=== PATIENT | female | born 1980 | race Two or more races ===

== ENCOUNTER 2024-10-22 05:04 | Emergency (ER) | payer MEDICAID, SELFPAY ==
[2024-10-22 05:06] VITALS: BP 106/72; PULSE 68; PULSE 76; RESP 17; RESP 18; TEMP 36.6; O2SAT 95; O2SAT 97
--- NOTE | 2024-10-22 05:06 | EKG_ITS ---
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
[2024-10-22 05:13] VITALS: BMI 44.6
--- NOTE | 2024-10-22 05:24 | EDNOTE_ITS ---
ED Seizures RME/HPI General Chief Complaint: Seizure Stated Complaint: SEIZURE Time Seen by Provider: 10/22/24 05:17 Arrival date/time: 10/22/24 05:04 RME / HPI RME / HPI Narrative: This section includes all my notes and documentations, including HPI, PE, and ED course. Ty Young MD HPI: 44-year-old female here to be evaluated with seizure at home just prior to arrival. Has history of seizures. Takes Keppra 1000 mg BID. Carriage Dogger noted seizure while in bed. Lasted for 20 minutes. Unresponsive during the whole time. Eyes rolled back. Urinary incontinence. No injury. Unable to obtain history from the patient at this point because she is postictal. ROS: Unable to obtain from the patient due to current in no condition. Physical Exam: General: In postictal state. Eyes: Conjunctivae and lids clear. EOMI. PERRL. ENT: No nasal congestion. Neck: Supple. Heart: RRR. Lungs: No respiratory distress. Good air movement. No rhonchi, wheezing, rales. Skin: Warm and dry. Neuro: Cranial Nerves II-XII grossly intact. No obvious peripheral motor deficits. I reviewed EMS notes. I ordered diagnostic tests and Vimpat 200 mg IV. At 0600, the care of the patient was transferred to Dr. Leslie. Ty Young MD Related Data Home Medications ?Medication ?Instructions ?Recorded ?Confirmed aspirin 81 mg capsule 81 mg PO QDAY 04/15/23 04/16/23 atorvastatin 80 mg tablet 80 mg PO QDAY 04/15/23 04/16/23 citalopram 20 mg tablet 20 mg PO QDAY 04/15/23 04/16/23 famotidine 20 mg tablet 20 mg PO HS 04/15/23 04/16/23 hydroxyzine HCl 25 mg tablet 25 mg PO BID PRN Anxiety 04/15/23 04/16/23 levetiracetam 1,000 mg tablet 1,000 mg PO BID 04/15/23 04/16/23 oxcarbazepine 300 mg 300 mg PO QDAY 04/15/23 04/16/23 tablet,extended release 24 hr (Oxtellar XR) Allergies Allergy/AdvReac Type Severity Reaction Status Date / Time Latex, Natural Rubber AdvReac Intermediate Rash Verified 10/22/24 05:22 Course Quality Measures none Orders Category Date Time Status Bedside COVID-19 Antigen Test NOW Care 10/22/24 05:25 Active Bedside Influenza A&B Antigen Test NOW Care 10/22/24 05:25 Active EKG (ED ONLY) *Do not use* NOW Care 10/22/24 05:06 Completed EKG (ED ONLY) *Do not use* NOW Care 10/22/24 05:26 Active Saline [Insert IV] NOW Care 10/22/24 05:25 Active Straight [In and Out Catheter] X1 Care 10/22/24 05:[address] head/brain wo con Stat Exams 10/22/24 05:26 Taken EKG (ED Only) Stat Exams 10/22/24 05:06 Draft EKG (ED Only) Stat Exams 10/22/24 05:26 Ordered XR chest 1V portable Stat Exams 10/22/24 05:26 Ordered Alcohol, Blood Medical Stat Lab 10/22/24 05:27 Ordered CBC Stat Lab 10/22/24 05:28 Ordered CMP [Comprehensive Metabolic Panel] Stat Lab 10/22/24 05:27 Ordered Drug Screen,Urine Stat Lab 10/22/24 05:28 Ordered HCG Qualitative,Urine Stat Lab 10/22/24 05:28 Ordered HCG,Qualitative Serum Stat Lab 10/22/24 05:27 Ordered Magnesium Stat Lab 10/22/24 05:27 Ordered TSH [Thyroid Stimulating Hormone] Stat Lab 10/22/24 05:27 Ordered Troponin I Stat Lab 10/22/24 05:27 Ordered UA [Urinalysis] Stat Lab 10/22/24 05:28 Ordered Lacosamide Ivp [Vimpat IVP] 200 mg Med 10/22/24 05:26 Discontinued Sodium Chloride 0.9% [Ns] 100 ml IV X1 Vital Signs Vital signs: Vital Signs Temperature 97.8 F 10/22/24 05:06 Pulse Rate 76 10/22/24 05:06 Respiratory Rate 17 10/22/24 05:06 Blood Pressure 106/72 10/22/24 05:06 Pulse Oximetry (%) 97 10/22/24 05:06 Oxygen Delivery Method Room Air 10/22/24 05:06 Seizure Patient data External records reviewed:: [facility] previous records Clinical information provided by:: 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 Ty Young MD) Lab and/or radiology exams considered but not ordered:: None Interpretation Summary: Diagnostic tests pending Medications / Prescriptions Medications or Prescriptions considered but not ordered:: None Medication administrations:: Medication Administration History Discontinued Medications Lacosamide 200 mg/ Sodium (Chloride) 120 mls @ 240 mls/hr IV X1 ONE Stop: 10/22/24 05:27 Vimpat Consultations Consultation(s) initiated? (list below): No Diagnosis Seizure Differential Diagnosis: intractable seizure disorder, focal seizure, generalized seizure, epileptic seizure and status epilepticus Most likely diagnosis given after review of the tests above:: Diagnostic tests pending Admission Indicated Admission indicated?: not indicated Explain why admission is indicated or not indicated:: Diagnostic tests pending Admission Request Was there a request for admission?: No Disposition Plan Disposition Plan: other (specify) (Diagnostic tests pending) Discharge Plan Prescriptions/Referrals Prescriptions/Med Rec: No Action atorvastatin 80 mg Tablet 80 mg PO QDAY citalopram 20 mg Tablet 20 mg PO QDAY famotidine 20 mg Tablet 20 mg PO HS hydroxyzine HCl 25 mg Tablet 25 mg PO BID PRN (Reason: Anxiety) levetiracetam 1,000 mg Tablet 1,000 mg PO BID Oxtellar XR 300 mg Tablet Extended Release 24 Hr 300 mg PO QDAY Rx Instructions: must be taken on empty stomach; no food at least 2 hrs before or 1 hr after dose aspirin 81 mg Capsule 81 mg PO QDAY Problem List Clinical Impression: Status epilepticus Patient/Caregiver Discharge Instructions Print Language: Monegasque
--- NOTE | 2024-10-22 05:25 | PC.NURSE ---
Pt BIB EMS with chief c/o of full tonic clonic seizure that lasted about 3 min according to the caregiver who is at bedside. Pt also reports that she did take her keppra at 2200hr last night. Pt denied any injures On assessment the Pt has has not injures noted, is able to MAEW with no discomfort. GCS of 15, A&O4. Pt and caregiver given update on plan of care, Call light within reach
--- NOTE | 2024-10-22 05:26 | XR_ITS ---
Examination: AP chest single view Technique one AP portable upright chest single view Exam date and time: October 22, 2024 0554 hrs. Comparison October 24, 2023 Indications: Onset shortness of breath today. Findings: Normal heart size No pneumonia or pulmonary edema The osseous structures are intact Impression: No active disease
--- NOTE | 2024-10-22 05:26 | XR_ITS ---
Examination: CT brain head without contrast. 2-D sagittal coronal reconstructions Date and time of exam:October 22, 2024 0542 hrs. Indications: Onset seizure this morning, history seizures with tremors CTDI: vol (mGy):57.5 DLP: (mGycm):1160 Technique: Multiple CT axial sections of the brain have been obtained, 5 mm slice thickness. Contrast has not been administered. 2-D sagittal, coronal reconstructions have been obtained Low dose protocols were performed. One or more of the following dose reduction techniques were used; automated exposure control, adjustment of the mA and/or KV according to patient size, use of iterative reconstruction technique. Findings: No significant ventricular enlargement. Again noted tiny cerebral calcifications, which can be seen with cysticercosis Intra-axial or extra-axial hemorrhage density is not seen. No mass effect or midline shift Basal cisterns are not remarkable. Fourth ventricle is midline. Cranial vault intact. 10 mm calcification coronal image 38 contiguous with the left cerebellar tentorium Impression: Negative for acute hemorrhage, mass effect or midline shift Suspicious for 10 mm meningioma contiguous with the left cerebellar tentorium Recommend brain MRI follow-up pre and postcontrast
[2024-10-22] MEDS: LACOSAMIDE IVP 200 MG in SODIUM CHLORIDE 0.9% 100 ML 240 MG IV (06:19)
[2024-10-22 06:28] LABS: Basophils % (Auto) 0 % (0-2.5); Eosinophils # (Auto) 0.1 Thou/mm3 (0.0-0.5); Eosinophils % (Auto) 1 % (0-10); Hemoglobin 11.5 g/dL (12.0-16.0); Immature Granulocytes % (Auto) 1 % (0-0); Immature Granulocytes Auto 0.05 Thou/mm3 (0.00-0.00); Lymphocytes # (Auto) 3.2 Thou/mm3 (1.0-4.8); Lymphocytes % (Auto) 29 % (10-50); Mean Corpuscular HGB Conc 31.9 g/dl (31.0-37.0); Mean Corpuscular Hemoglobin 24.8 pg (25.0-35.0); Mean Corpuscular Volume 78 fL (80-100); Monocytes # (Auto) 0.9 Thou/mm3 (0.0-0.8); Monocytes % (Auto) 8 % (0-12); Neutrophils # (Auto) 6.9 Thou/mm3 (1.8-7.7); Neutrophils % (Auto) 62 % (37-80); Nucleated Red Blood Cell % 0 /100 WBC (0); Platelet Count 415 Thou/mm3 (140-440); RDW Standard Deviation 44.6 fL (36.4-46.3); Red Blood Count 4.64 Miln/mm3 (4.00-5.20)
[2024-10-22 06:42] LABS: HCG,Qualitative Serum Negative
[2024-10-22 06:56] LABS: Alanine Aminotransferase 54 U/L (10-49); Albumin, Serum 4.1 gm/dL (3.5-5.0); Albumin/Globulin Ratio 1.5 (1.2-2.2); Alcohol, Blood Medical < 3.0 mg/dL (0-10.0); Alkaline Phosphatase 317 U/L (46-116); Anion Gap 7 (7-16); Aspartate Amino Transferase 32 U/L (0-34); BUN/Creatinine Ratio 20 Ratio (12-20); Bilirubin,Total 0.2 mg/dL (0.3-1.2); Blood Urea Nitrogen 14 mg/dL (9-23); Calcium 8.8 mg/dL (8.3-10.6); Calcium (Corrected) 8.8 mg/dL (8.5-10.1); Carbon Dioxide 25.6 mMol/L (20.0-31.0); Chloride 105 mMol/L (98-107); Creatinine (Component) 0.7 mg/dL (0.6-1.3); Estimated Creatinine Clearance 128.2 mL/min (>60); Globulin 2.8 gm/dL (2.3-3.5); Glucose 105 mg/dL (74-106); Magnesium 1.9 mg/dL (1.6-2.6); Osmolality,Calculated 276 (275-295); Potassium 3.5 mMol/L (3.4-5.1); Sodium 138 mMol/L (136-145); Thyroid Stimulating Hormone 1.45 uIU/mL (0.55-4.78); Total Protein 6.9 gm/dL (5.7-8.2); eGFR > 60 See Note
[2024-10-22 06:58] LABS: Troponin I < 0.002 ng/mL (0.0-0.045)
--- NOTE | 2024-10-22 07:00 | PRELIM_ITS ---
CT scan of the head without intravenous contrast (axial sections with sagittal and coronal reformats) October 22, 2024 at 0542 hoursClinical History: Seizure.Comparison: No prior study is available for comparison. Findings:There is no evidence of intracranial hemorrhage, mass effect or midline shift. There are scattered calcifications in bilateral periventricular region and left occipital lobe. Dilat e temporal horns of both lateral ventricles and 4th ventricle. There is mild volume loss. The calvari um is unremarkable. The mastoid air cells and the visualized paranasal sinuses are clear.Impression:N o evidence of intracranial hemorrhage, mass effect or midline shift. Dilated temporal horns of both l ateral ventricles. Recommend further evaluation with MRI, as clinically indicated. Other findings as described above. Report Electronically Signed By: Mireille King 10/22/2024 6:59:53 AM [EST]
[2024-10-22 08:18] VITALS: BP 136/75; PULSE 89; RESP 19; TEMP 36.9; O2SAT 97
--- NOTE | 2024-10-22 08:39 | PD.EDADDENDU ---
Emergency Room Addendum Addendum Narrative: Patient's care was transitioned from Dr. Young. Awaits CT results and the workup of her CT. Patient is awake and alert. The CT showed a possible meningioma. Patient reports that she was admitted to [facility] for the same abnormality seen and her workup was unremarkable. At this time, patient does not have any emergency medical condition
[2024-10-22 10:00] VITALS: BP 139/87; PULSE 79; RESP 18; TEMP 36.6; O2SAT 97
== END 2024-10-22 10:08 | disposition home or self-care (01) ==
PROVIDERS: Emergency Medicine; Emergency Provider Emergency Medicine; PCP Physician Assistant
DX: G40.901 Epilepsy, unspecified, not intractable, with status epilepticus (principal); R06.02 Shortness of breath; R94.31 Abnormal electrocardiogram [ECG] [EKG]
CPT/HCPCS: 36415; 70450; 71045; 80053; 80307; 80320; 81001; 81025; 83735; 84443; 84484; 84703; 85025; 87400; 87811; 93005; 96365; 99284; C9254; J7050; G0480

== ENCOUNTER 2024-12-07 09:48 | Emergency (ER) | payer MEDICAID, SELFPAY ==
[2024-12-07 09:58] VITALS: BP 139/85; PULSE 80; RESP 19; TEMP 36.5; O2SAT 98
--- NOTE | 2024-12-07 09:59 | PD.EDSEIZ ---
ED Seizures RME/HPI General Chief Complaint: Seizure Stated Complaint: SEIZURE Time Seen by Provider: 12/07/24 09:59 Arrival date/time: 12/07/24 09:48 RME / HPI RME / HPI Narrative: This section includes all my notes and documentations, including HPI, PE, and ED course.? Ty Young MD HPI: 44 year old female with history of cerebral palsy, CVA with residual right sided weakness, epilepsy presents to the ED BIBA from home for a seizure today. Per medics, caregiver on scene reported patient had a focal seizure lasting 8-9 minutes today. Prehospital BS 114. Patient states she does not recall the seizure or what occurred. Last seizures was 09/2024. While in the ED complains of a mild headache. Additionally reports she has had diarrhea for several days. Denies fevers, chills, chest pain, cough, shortness of breath, abdominal pain, nausea, vomiting. No other complaints. ROS: All negative except as documented in HPI. Physical Exam: General:? Alert and oriented.? No acute distress when remaining still.?? Eyes:? Conjunctivae and lids clear.? EOMI. PERRL. ENT:? No nasal congestion.? Patent airway. Neck:? Supple.? Heart:? RRR.? Lungs:? No respiratory distress.? Good air movement.? No rhonchi, wheezing, rales.?? Abdomen:? Soft and nontender.?? Legs:? No clubbing, cyanosis, edema.? Skin:? Warm and dry.?? Neuro:? Alert and oriented X 3.??Cranial nerves II through grossly normal. No peripheral motor deficits. I reviewed all diagnostic test results. My interpretation of the EKG is?sinus rhythm (69 bpm) with nonspecific ST-T changes. My interpretation of the chest x-ray is no acute findings. My review of the head CT report is?no acute findings. Blood tests and urine tests?unremarkable. At this point, diagnoses include?recurrent seizures. Treatment here included?Ativan and Vimpat. Patient remained stable. I discussed the case with our hospitalist.? About the presentation and exam and diagnostics and treatments here.? And possible need of further care in the hospital.? Recommended increasing Oxtellar XR from 600 mg to 900 mg daily and outpatient follow-up. Based on my best medical judgment, made decision no further evaluation or treatment indicated at this time.? Patient understands and agrees to the discharge instructions customized and printed, see below. Discharge Instructions from Dr. Young printed for you: 1. Increase Oxtellar to 600 mg and 300 mg daily until cleared by your neurologist. 2. See your neurologist next week as scheduled. 3. Seek immediate medical care with another seizure or with any concerns. Ty Young MD Related Data Home Medications ?Medication ?Instructions ?Recorded ?Confirmed aspirin 81 mg capsule 81 mg PO QDAY 04/15/23 04/16/23 atorvastatin 80 mg tablet 80 mg PO QDAY 04/15/23 04/16/23 citalopram 20 mg tablet 20 mg PO QDAY 04/15/23 04/16/23 famotidine 20 mg tablet 20 mg PO HS 04/15/23 04/16/23 hydroxyzine HCl 25 mg tablet 25 mg PO BID PRN Anxiety 04/15/23 04/16/23 levetiracetam 1,000 mg tablet 1,000 mg PO BID 04/15/23 04/16/23 oxcarbazepine 300 mg 300 mg PO QDAY 04/15/23 04/16/23 tablet,extended release 24 hr (Oxtellar XR) Previous Rx's ?Medication ?Instructions ?Recorded oxcarbazepine 300 mg 300 mg PO QDAY #30 tabs 12/07/24 tablet,extended release 24 hr (Oxtellar XR) oxcarbazepine 600 mg 600 mg PO QDAY #30 tabs 12/07/24 tablet,extended release 24 hr (Oxtellar XR) Allergies Allergy/AdvReac Type Severity Reaction Status Date / Time Latex, Natural Rubber AdvReac Intermediate Rash Verified 10/22/24 05:22 Review of Systems Review of Systems Systems Reviewed: All systems reviewed, normal except as documented Past Medical History Past Medical History NEUROLOGIC: Positive Neurological Disorders, Cerebrovascular Accident, Seizures, Epilepsy and Cerebral Palsy GASTROINTESTINAL: Positive Gastrointestinal Disorders, Gall Bladder Disease and Obesity REPRODUCTIVE: Positive Previous Pregnancies PSYCHO/SOCIAL: Positive Anxiety OTHER HISTORY: Positive Hospitalization, Chicken Pox and Measles Family History FAMILY HISTORY: Negative Family Psychiatric Problems, Family Respiratory Disorders, Family Cardiac Disorders, Family Gastrointestinal Problems, Family Cancer, Family Surgery or Family Anesthesia Reaction Surgical History SURGICAL: Positive Hysterectomy and Tubal Ligation Social History SMOKING STATUS: Never smoker ED Exam Narrative Physical exam: As noted in HPI Course Quality Measures none Orders Category Date Time Status EKG (ED ONLY) *Do not use* NOW Care 12/07/24 10:03 Completed Saline [Insert IV] NOW Care 12/07/24 10:01 Completed Straight [In and Out Catheter] X1 Care 12/07/24 10:[address] head/brain wo con Stat Exams 12/07/24 10:03 Completed EKG (ED Only) Stat Exams 12/07/24 10:03 Ordered XR chest 1V portable Stat Exams 12/07/24 10:04 Completed CBC Stat Lab 12/07/24 12:16 Completed CMP [Comprehensive Metabolic Panel] Stat Lab 12/07/24 12:16 Completed Magnesium Stat Lab 12/07/24 12:16 Completed TSH [Thyroid Stimulating Hormone] Stat Lab 12/07/24 12:16 Completed Troponin I Stat Lab 12/07/24 12:16 Completed UA, C/S IF [Urinalysis, C/S if Indicated] Stat Lab 12/07/24 12:26 Completed LORazepam [Ativan Inj] Med 12/07/24 10:04 Discontinued 1 mg IVP X1 ONE Lacosamide Ivp [Vimpat IVP] 200 mg Med 12/07/24 10:04 Discontinued Sodium Chloride 0.9% [Ns] 100 ml IV X1 Vital Signs Vital signs: Vital Signs Temperature 97.7 F 12/07/24 09:58 Pulse Rate 80 12/07/24 09:58 Respiratory Rate 19 12/07/24 09:58 Blood Pressure 139/85 H 12/07/24 09:58 Pulse Oximetry (%) 98 12/07/24 09:58 Oxygen Delivery Method Room Air 12/07/24 09:58 Pulse ox is 98% on room air which is adequate. Seizure MDM Narrative MDM Narrative:: Jazmine Trent am scribing for and in the presence of Dr. Young. Patient data External records reviewed:: 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 Ty Young MD) Lab and/or radiology exams considered but not ordered:: None Interpretation Summary: Recurrent seizures Medications / Prescriptions Medications or Prescriptions considered but not ordered:: None Medication administrations:: Medication Administration History Discontinued Medications Lacosamide 200 mg/ Sodium (Chloride) 120 mls @ 240 mls/hr IV X1 ONE Stop: 12/07/24 10:05 Last Infusion: 12/07/24 13:00 Dose: Infused Documented By: Admin: 12/07/24 12:21 Dose: 240 mls/hr Documented By: MARCOS Lorazepam (Lorazepam 2 Mg/Ml Vial) 1 mg IVP X1 ONE Stop: 12/07/24 10:05 Last Admin: 12/07/24 11:10 Dose: 1 mg Documented By: IDALIA Patient given Lacosamide and Ativan Consultations Consultation(s) initiated? (list below): Yes Consultation #1 (Physician, Specialty, Details): I spoke with neurologist Dr. Salazar. Discussed patients HPI, ED course, exam findings, labs, and radiology results. Recommended increasing Oxtellar XR and outpatient follow-up. Time: 14:36 Consultation #2 (Physician, Specialty, Details): I again spoke with neurologist Dr. Salazar and updated on patients current medication dosage. Time: 15:33 Diagnosis Seizure Differential Diagnosis: intractable seizure disorder, febrile convulsion, focal seizure, generalized seizure, epileptic seizure and status epilepticus Most likely diagnosis given after review of the tests above:: Recurrent seizures Admission Indicated Admission indicated?: not indicated Explain why admission is indicated or not indicated:: Does not meet admission criteria Admission Request Was there a request for admission?: No Disposition Plan Disposition Plan: Discharge Discharge Attestation Discharge Attestation: The patient and all family members were given an opportunity to ask questions and understood the discharge instructions. Discharge instructions specifically effects, indications for sooner follow up or return to the emergency department, and the expected course of current diagnosis. Patient condition: Stable Discharge Plan Plan Patient Disposition: HOME (Self Care) Prescriptions/Referrals Prescriptions/Med Rec: New oxcarbazepine [Oxtellar XR] 600 mg tablet extended release 24 hr 600 mg PO QDAY Qty: 30 1RF Rx Instructions: must be taken on empty stomach; no food at least 2 hrs before or 1 hr after dose oxcarbazepine [Oxtellar XR] 300 mg tablet extended release 24 hr 300 mg PO QDAY Qty: 30 1RF Rx Instructions: must be taken on empty stomach; no food at least 2 hrs before or 1 hr after dose No Action atorvastatin 80 mg Tablet 80 mg PO QDAY citalopram 20 mg Tablet 20 mg PO QDAY famotidine 20 mg Tablet 20 mg PO HS hydroxyzine HCl 25 mg Tablet 25 mg PO BID PRN (Reason: Anxiety) levetiracetam 1,000 mg Tablet 1,000 mg PO BID Oxtellar XR 300 mg Tablet Extended Release 24 Hr 300 mg PO QDAY Rx Instructions: must be taken on empty stomach; no food at least 2 hrs before or 1 hr after dose aspirin 81 mg Capsule 81 mg PO QDAY Referrals: Jefe Iniguez PA-C [Primary Care Provider] - In 1 week Problem List Clinical Impression: Recurrent seizures Patient/Caregiver Discharge Instructions Discharge Activity: activity as tolerated Education Materials: ED Seizure, Recurrent (Adult) Additional Instructions: Discharge Instructions from Dr. Young printed for you: 1. Increase Oxtellar to 600 mg and 300 mg daily until cleared by your neurologist. 2. See your neurologist next week as scheduled. 3. Seek immediate medical care with another seizure or with any concerns. Print Language: Pashto Stand Alone Forms: [facility] Award Info., Patient Portal Info Letter
--- NOTE | 2024-12-07 10:03 | XR_ITS ---
Examination: CT brain head without contrast. 2-D sagittal coronal reconstructions Date and time of exam:December 07, 1999 2529 hours Comparison October 22, 2024 INDICATIONS: Seizure today, diagnosis 10 mm meningioma contiguous with the left cerebellar tentorium on CT brain scan September 21, 2024 CTDI: vol (mGy):52.7 DLP: (mGycm):1067 Technique: Multiple CT axial sections of the brain have been obtained, 5 mm slice thickness. Contrast has not been administered. 2-D sagittal, coronal reconstructions have been obtained Low dose protocols were performed. One or more of the following dose reduction techniques were used; automated exposure control, adjustment of the mA and/or KV according to patient size, use of iterative reconstruction technique. Findings: No significant ventricular enlargement. Tiny cerebral calcifications Intra-axial or extra-axial hemorrhage density is not seen. No mass effect or midline shift Basal cisterns are not remarkable. Fourth ventricle is midline. Cranial vault intact. 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
--- NOTE | 2024-12-07 10:04 | XR_ITS ---
Examination: AP chest single view Technique one AP portable semiupright chest single view Exam date and time: December 07, 2024 1057 hours Comparison October 22, 2024 INDICATIONS: Seizure today, diagnosis cerebral palsy, history CVA FINDINGS: Minimal prominence left ventricle No aspiration pneumonia No pulmonary edema Mild osteopenia IMPRESSION: Negative for aspiration pneumonia
[2024-12-07 10:12] VITALS: PULSE 84; RESP 20; O2SAT 98; BMI 25.0
[2024-12-07] MEDS: LORazepam 2 MG/ML VIAL 1 MG IVP (11:10)
[2024-12-07] MEDS: LACOSAMIDE IVP 200 MG in SODIUM CHLORIDE 0.9% 100 ML 240 MG IV (12:21)
[2024-12-07 12:24] LABS: Basophils # (Auto) 0.1 Thou/mm3 (0.0-0.2); Basophils % (Auto) 1 % (0-2.5); Eosinophils % (Auto) 0 % (0-10); Hematocrit 38.1 % (36.0-46.0); Hemoglobin 12.5 g/dL (12.0-16.0); Immature Granulocytes % (Auto) 0 % (0-0); Immature Granulocytes Auto 0.03 Thou/mm3 (0.00-0.00); Lymphocytes # (Auto) 2.8 Thou/mm3 (1.0-4.8); Lymphocytes % (Auto) 26 % (10-50); Mean Corpuscular HGB Conc 32.8 g/dl (31.0-37.0); Mean Corpuscular Hemoglobin 25.1 pg (25.0-35.0); Mean Corpuscular Volume 77 fL (80-100); Monocytes # (Auto) 0.7 Thou/mm3 (0.0-0.8); Monocytes % (Auto) 6 % (0-12); Neutrophils # (Auto) 7.2 Thou/mm3 (1.8-7.7); Neutrophils % (Auto) 67 % (37-80); Nucleated Red Blood Cell % 0 /100 WBC (0); Platelet Count 434 Thou/mm3 (140-440); RDW Standard Deviation 42.6 fL (36.4-46.3); Red Blood Count 4.98 Miln/mm3 (4.00-5.20); White Blood Count 10.7 Thou/mm3 (3.6-11.0)
[2024-12-07 12:28] VITALS: BP 115/74; PULSE 72; RESP 20; TEMP 36.6; O2SAT 98
[2024-12-07 12:34] LABS: Collection Type, Urine Clean Catch
[2024-12-07 12:38] LABS: Bilirubin,Urine Negative (Negative); Blood,Urine Negative (Negative); Clarity,Urine Clear (Clear/Hazy); Color,Urine Yellow (Lt Yel-Yel); Culture Indicated,Urine Not Indicated; Glucose, Urine Negative (Negative); Ketones,Urine 1+ (Negative); Leukocyte Esterase,Urine Negative (Negative); Nitrite,Urine Negative (Negative); PH,Urine 6.5 (5.0-7.0); Protein,Urine Trace (Neg - Trace); RBC,Urine 1 /hpf (0-3); Specific Gravity,Urine 1.027 (1.001-1.035); Squamous Epithelial Cell,Urine 2 /hpf (0-5); WBC,Urine 2 /hpf (0-5)
[2024-12-07 12:50] LABS: Alanine Aminotransferase 29 U/L (10-49); Albumin, Serum 4.6 gm/dL (3.5-5.0); Albumin/Globulin Ratio 1.5 (1.2-2.2); Alkaline Phosphatase 275 U/L (46-116); Anion Gap 8 (7-16); Aspartate Amino Transferase 23 U/L (0-34); BUN/Creatinine Ratio 18 Ratio (12-20); Bilirubin,Total 0.3 mg/dL (0.3-1.2); Blood Urea Nitrogen 9 mg/dL (9-23); Carbon Dioxide 25.4 mMol/L (20.0-31.0); Chloride 105 mMol/L (98-107); Creatinine (Component) 0.5 mg/dL (0.6-1.3); Glucose 86 mg/dL (74-106); Magnesium 1.9 mg/dL (1.6-2.6); Osmolality,Calculated 273 (275-295); Potassium 3.4 mMol/L (3.4-5.1); Sodium 138 mMol/L (136-145); Thyroid Stimulating Hormone 1.62 uIU/mL (0.55-4.78); Total Protein 7.6 gm/dL (5.7-8.2); Troponin I < 0.002 ng/mL (0.0-0.045); eGFR > 60 See Note
[2024-12-07 14:46] VITALS: BP 123/81; PULSE 78; RESP 18; TEMP 36.6; O2SAT 96
== END 2024-12-07 16:03 | disposition home or self-care (01) ==
PROVIDERS: Emergency Provider Emergency Medicine; PCP Physician Assistant
DX: R56.9 Unspecified convulsions (principal); G80.9 Cerebral palsy, unspecified; I69.351 Hemiplegia and hemiparesis following cerebral infarction affecting right dominant side; R51.9 Headache, unspecified
CPT/HCPCS: 36415; 70450; 71045; 80053; 81001; 83735; 84443; 84484; 85025; 93005; 96365; 99284; C9254; J2060; J7050

== ENCOUNTER → 2024-12-09 | Outpatient (CLI) | payer MEDICAID, SELFPAY ==
--- NOTE | 2024-12-09 10:15 | XR_ITS ---
Examination: MRI of brain without intravenous contrast. MRI brain with intravenous contrast. Date and time of exam:December 09, 2024 1019 hrs. Indications: CT brain scan December 07, 2024 10 mm left cerebellar tentorial calcified mass, history multiple sclerosis, cerebral palsy, altered mental status beginning December 07, 2023 Technique: Multiple axial and sagittal images of the brain to been obtained. Siemens high-resolution 1.52 Princess short bore scanner utilized. Sagittal sections, T1 weighted images, TR 500, TE 14, are performed. Axial sections proton-density and T2-weighted images have been obtained. Inversion recovery axial images, TR 9260, TE 111, TR 2500. Diffusion weighted images, axial sections, TR 4800, TE 128, B value 1000. Axial sections, ADC map, TR 4800, TE 128. Axial and coronal images were also obtained post 20 cc gadolinium administered intravenously. Findings:: Enlargement of the sella turcica is not present. The optic chiasm and infundibular stalk are not remarkable. There is no localized enlargement of the medulla or nicolasa. Fourth ventricle and cerebellar tonsils appear normal in position. No subacute area of hemorrhage density is seen. Fourth ventricle is midline. Mass in the cerebellopontine angle region is not evident. 7th and 8th nerve complexes exhibit symmetry Globes are symmetrical Orbital musculature including medial lateral rectus muscles do not exhibit abnormality Increased white matter signal is evident, moderate Effacement of the cortical sulcal markings is not identified. Mass effect upon the ventricular system is not identified. Diffusion-weighted images demonstrate no focus of restricted diffusion Contrast images demonstrate no convincing abnormal enhancing lesion. There Impression: Negative for acute hemorrhage mass effect or midline shift No acute infarct White matter foci of increased signal consistent with demyelinating disease No convincing abnormal enhancement on the postcontrast images
== END | disposition home or self-care (01) ==
LOC: SMRI 09:27
PROVIDERS: PCP Physician Assistant; Referring Provider Physician Assistant; Visit Provider Physician Assistant
DX: R90.82 White matter disease, unspecified (principal); G37.9 Demyelinating disease of central nervous system, unspecified
CPT/HCPCS: 70553; A9579

== ENCOUNTER → 2025-10-11 | Outpatient (CLI) | payer MEDICAID, SELFPAY ==
--- NOTE | 2025-10-11 09:21 | XR_ITS ---
MRI abdomen, without contrast. MRCP Date and time of exam: October 11, 2025, 1038 hours INDICATIONS: Elevated liver enzymes on laboratory examination 1 month ago Technique: Multiple axial and coronal images of the abdomen have been obtained with the Siemens 1.5T MRI scanner. Images obtained included T1 weighted transverse images, T2-weighted transverse images, T2-weighted transverse images fat-suppressed, T2 weighted haste fat suppressed transverse images, T1 weighted images, in and out of phase images, T2-weighted coronal images, breath hold, T2 weighted haze coronal images as well as T2 weighted coronal thick slab images, MRCP. Findings: Hepatomegaly 18 cm Septated 24 mm cystic lesion anterior liver No intrahepatic biliary tract dilatation Gallbladder not visualized Normal common hepatic common bile duct no stones No pancreatic mass Spleen not enlarged No renal or ureteral calculi, no hydronephrosis No ascites Aorta normal size IMPRESSION: Moderate hepatomegaly, 24 mm cystic lesion anterior liver Normal common hepatic common bile duct
== END | disposition home or self-care (01) ==
PROVIDERS: PCP Physician Assistant; Referring Provider Internal Medicine Gastroenterology; Visit Provider Internal Medicine Gastroenterology
DX: R16.0 Hepatomegaly, not elsewhere classified (principal)
CPT/HCPCS: 74181